=== PATIENT | female | born 1980 | race Caucasian/White ===

== ENCOUNTER 2017-04-29 10:48 | Emergency (ER) | payer MEDICARE, MEDICAID ==
[~2017-04-29] VITALS: Wt 54.5 kg
[~2017-04-29 10:48] MED LIST: AZAT50TA31 PO; CLON0.5T4 PO; DUR100 TD; GLUC1KIT3 IJ; HAL2 PO; HYDR200T39 PO; INSU100I28 SC; LANT3I SC; LIPA1CAP45 PO; LYRI25 PO; METO10TA92 PO; MILN50TA PO; MORP10SO4 GTB; OLAN10TA7 PO; OMEP40CA6 PO; OXYC-284 PO; SERT25TA PO; TIZA2TAB PO; TRAZ50TA18 PO
[2017-04-29] MEDS ORDERED: SOD CHLORIDE 0.9% 1,000 ML IV STA (11:11)
[2017-04-29 11:41] LABS: ADD SCAN DIFF NO
[2017-04-29 11:53] LABS: BASOPHIL # 0.1 10^3/ul (0.0-0.1); BASOPHILS % 0.4 % (0.0-2.0); EOSINOPHILS % 0.2 % (0.0-7.0); HEMATOCRIT 39.6 % (37.0-47.0); HEMOGLOBIN 14.3 g/dl (12.0-16.0); LYMPHOCYTES # 1.6 10^3/ul (0.8-2.9); LYMPHOCYTES % 12.5 % (15.0-51.0); MEAN CORPUSCULAR HEMOGLOBIN 34.8 pg (29.0-33.0); MEAN CORPUSCULAR HGB CONC 36.1 g/dl (32.0-37.0); MEAN CORPUSCULAR VOLUME 96.4 fl (82.0-101.0); MEAN PLATELET VOLUME 12.5 fl (7.4-10.4); MONOCYTE # 0.9 10^3/ul (0.3-0.9); MONOCYTES % 7.4 % (0.0-11.0); NEUTROPHIL # 9.9 10^3/ul (1.6-7.5); NEUTROPHILS % 78.6 % (39.0-77.0); PLATELET COUNT 339 10^3/UL (140-415); RED BLOOD COUNT 4.11 10^6/ul (4.20-5.40); RED CELL DISTRIBUTION WIDTH 13.8 % (11.5-14.5); WHITE BLOOD COUNT 12.5 10^3/ul (4.8-10.8)
[2017-04-29 12:04] LABS: ALANINE AMINOTRANSFERASE 39 IU/L (13-69); ALBUMIN 5.7 g/dl (3.3-4.9); ALKALINE PHOSPHATASE 167 IU/L (42-121); ANION GAP 18 (8-16); ASPARTATE AMINO TRANSFERASE 111 IU/L (15-46); BILIRUBIN,INDIRECT 0.6 mg/dl (0-1.1); BILIRUBIN,TOTAL 0.6 mg/dl (0.2-1.3); BLOOD UREA NITROGEN 19 mg/dl (7-20); CALCIUM 8.9 mg/dl (8.4-10.2); CARBON DIOXIDE 22 mmol/L (21-31); CHLORIDE 88 mmol/L (97-110); CREATININE 1.35 mg/dl (0.44-1.00); TOTAL PROTEIN 9.5 g/dl (6.1-8.1)
[2017-04-29 12:06] LABS: ADD UMIC NO; UR ASCORBIC ACID NEGATIVE (NEGATIVE); UR BILIRUBIN (Dip) NEGATIVE (NEGATIVE); UR BLOOD (Dip) NEGATIVE (NEGATIVE); UR CLARITY CLEAR (CLEAR); UR COLOR YELLOW (YELLOW); UR GLUCOSE (Dip) 3+ mg/dL (NEGATIVE); UR KETONES (Dip) NEGATIVE (NEGATIVE); UR LEUKOCYTE ESTERASE (Dip) NEGATIVE Leu/ul (NEGATIVE); UR NITRITE (Dip) NEGATIVE (NEGATIVE); UR TOTAL PROTEIN (Dip) NEGATIVE (NEGATIVE); UR UROBILINOGEN (Dip) NEGATIVE (NEGATIVE)
[2017-04-29 12:12] LABS: SODIUM 119 mmol/L (135-144)
[2017-04-29 12:13] LABS: ACETAMINOPHEN < 10.0 ug/ml (10.0-30.0); ETHANOL < 10.0 mg/dl; GLUCOSE 430 mg/dl (70-220); SALICYLATE < 1.0 mg/dl (5.0-30.0)
[2017-04-29 12:18] LABS: BENZODIAZEPINES Negative (NEGATIVE)
[2017-04-29 12:22] LABS: POTASSIUM 8.6 mmol/L (3.5-5.1)
[2017-04-29 12:34] LABS: BARBITURATES Negative (NEGATIVE); CANNABINOIDS Negative (NEGATIVE); COCAINE Negative (NEGATIVE); OPIATES Negative (NEGATIVE)
--- NOTE | 2017-04-29 12:45 | RADRPT ---
PROCEDURE: CT Cervical Spine without contrast. CLINICAL INDICATION: Altered level of consciousness. TECHNIQUE: A CT of the cervical spine was performed on a CT scanner utilizing thin section axial images from the skull base through the thoracic inlet. Sagittal and coronal reformatted images were made. The CTDIvol is 22.4 mGy and the DLP is 647.89 mGycm. Automated exposure control, adjustment of the mA and/or kV according to patient size, use of iterative reconstruction technique. COMPARISON: No prior studies are available for comparison. FINDINGS: Straightening of the cervical spine with reversal of the normal cervical lordosis at C4-C5. No vert ebral body subluxation is seen. No fracture is evident. C2-3: The disc is normal in height. No significant disk bulge or protrusion is evident. There is no central canal stenosis or foraminal narrowing. C3-4: The disc is normal in height. No significant disk bulge or protrusion is evident. There is no central canal stenosis or foraminal narrowing. C4-5: The disc is normal in height. No significant disk bulge or protrusion is evident. There is no central canal stenosis or foraminal narrowing. C5-6: The disc is normal in height. No significant disk bulge or protrusion is evident. There is no central canal stenosis or foraminal narrowing. C6-7: The disc is normal in height. Right central disk bulge/protrusion measuring 3 mm in AP dimen kathya. This is suboptimally evaluated due to streak artifact. There is no central canal stenosis o r foraminal narrowing. C7-T1: The disc is normal in height. small central disk bulge/protrusion . This is suboptimally radha luated due to streak artifact. There is no central canal stenosis or foraminal narrowing. No paraspinal soft tissue abnormality. The lung apices are clear right medial apical calcified gran ulomas. IMPRESSION: 1. No fracture or subluxation. No paraspinal soft tissue abnormality. 2. Small right central/central disk bulge/protrusion at C6-C7 and C7-T1 without central canal or fo raminal stenosis. These are suboptimally evaluated due to streak artifact . RPTAT:AAJJ J Port, Physician Date Time Electronically viewed and signed by Alan Garcia Physician on 04/29/2017 12:44 ISACC/
--- NOTE | 2017-04-29 13:11 | RADRPT ---
PROCEDURE: CT Brain without contrast. CLINICAL INDICATION: Patient in need of medical clearance. TECHNIQUE: A CT of the brain was performed on a [employer] CT scanner utilizi ng a low dose technique with axial imaging from the skull base through the vertex without IV contras t. Multiplanar reformatted images were made. Images were reviewed on a PACS workstation. The CTDI vol is 41.4 mGy and the DLP is 720 mGycm. One or more of the following dose reduction techniques were used: - Automated exposure control. - Adjustment of the mA and/or kV according to patient size. Use of iterative reconstruction technique. COMPARISON: None FINDINGS: The fourth ventricle is mildly dilated. The third and lateral ventricles are dilated with proportio nal sulcal dilatation noted. The cerebellar folia are prominent. No intracranial mass or hemorrhage is identified. The visible portions of the globes and extraocular muscles are normal. The paranasal sinuses are cl ear. The mastoid air cells and internal auditory canals are normal. The bony calvarium is intact. IMPRESSION: 1. Mild cerebral and cerebellar atrophy. 2. Otherwise, negative CT scan of the brain without contrast. RPTAT:AAJJ Physician Vaishali Date Time Electronically viewed and signed by Physician Vaishali on 04/29/2017 13:10 NOEMÍ/
[2017-04-29 13:18] LABS: CALCIUM 9.6 mg/dl (8.4-10.2); CREATININE 1.38 mg/dl (0.44-1.00); POTASSIUM 3.5 mmol/L (3.5-5.1)
[2017-04-29] MEDS ORDERED: INSULIN LISPRO 100 UNIT/ML VIAL SC STA (13:25)
--- NOTE | 2017-04-29 13:38 | ERD ---
ER Documentation Chief Complaint Date/Time DATE: 04/29/17 TIME: 13:36 Chief Complaint aloc per ems bs 233 in field HPI Patient is a 37-year-old female with diabetes who presents altered. Please note the history and physical exam is limited secondary to the patient's mental status. The patient was found altered outside of her apartment. Her sugar was 335 by paramedics. The paramedics think she is possibly intoxicated as she does take muscle relaxants chronically. Upon review of old medical records the patient has multiple visits to the ER for various complaints. Review of the emergency department information exchange shows visits to 3 separate emergency departments. She does not know the name of her primary doctor. ROS All systems reviewed and are negative except as per history of present illness. Medications Home Meds Reported Medications Azathioprine* (Imuran*) 50 Mg Tab, 50 MG PO DAILY, TAB 07/26/14 Trazodone Hcl* (Trazodone Hcl*) 50 Mg Tablet, 100 MG PO HS, TAB 07/26/14 Clonazepam* (Clonazepam*) 0.5 Mg Tablet, 0.5 MG PO BID, TAB 07/26/14 Insulin Detemir* (Levemir*) 100 U/Ml Insuln.pen, 16 UNIT SC QPM, EA 07/26/14 Insulin Detemir* (Levemir*) 100 U/Ml Insuln.pen, 14 UNIT SC QAM, EA 07/26/14 Morphine Sulfate* (Morphine* Liq) 10 Mg/5 Ml Solution, 0.5 ML GTB Q6, ML 07/26/14 Micvlh-Kgszphte-Puzgekn* (Rupali SO* 36,000) 36,000 L-114,000-180,000 Unit Capsule.dr, 2 CAP PO Q6, CAP 07/26/14 Oxycodone Hcl-Acetaminophen* (Percocet*) 10-325 Mg Tablet, 1 TAB PO Q4H Y for PAIN, TAB 07/26/14 Tizanidine Hcl* (Tizanidine Hcl*) 2 Mg Tablet, 2 MG PO Q4 Y for PAIN, TAB 07/26/14 Glucagon,Human Recombinant (Glucagon Emergency Kit) 1 Mg/Kit Kit, 1 MG IJ NEEDED, KIT 07/26/14 Fentanyl Patch* (Duragesic Patch*) 100 Mcg/Hr Transdermal Patch, 1 PATCH TD Q72H , PATCH 07/26/14 Haloperidol* (Haldol*) 2 Mg Tab, 2 MG PO TID, TAB 07/26/14 Insulin Glargine* (Lantus*) 100 Unit/Ml Soln, 3 UNIT SC HS, EA 07/26/14 Sertraline Hcl* (Zoloft*) 25 Mg Tablet, 25 MG PO DAILY, TAB 07/26/14 Pregabalin* (Lyrica*) 25 Mg Capsule, 50 MG PO QPM, CAP 07/26/14 Pregabalin* (Lyrica*) 25 Mg Capsule, 25 MG PO QAM, CAP 07/26/14 Olanzapine* (Zyprexa*) 10 Mg Tablet, 10 MG PO DAILY, TAB 07/26/14 Omeprazole* (Omeprazole*) 40 Mg Capsule.dr, 40 MG PO DAILY, CAP 07/26/14 Milnacipran Hcl (Savella) 50 Mg Tablet, 50 MG PO BID, TAB 07/26/14 Hydroxychloroquine Sulfate* (Hydroxychloroquine Sulfate*) 200 Mg Tablet, 200 MG PO BID 08/23/12 Metoclopramide* (Reglan*) 10 Mg Tablet, 10 MG PO TID W/FOOD 02/24/11 Allergies Allergies: Coded Allergies: Penicillins (Verified Allergy, Mild, 07/26/14) latex (Verified Allergy, Mild, 07/26/14) Cephalexin Monohydrate (Verified Allergy, Unknown, 07/26/14) Erythromycin Base (Verified Allergy, Unknown, anaphylactic rxn, 07/26/14) Sulfa (Sulfonamide Antibiotics) (Verified Allergy, Unknown, 07/26/14) amoxicillin trihydrate (Verified Allergy, Unknown, anaphylactic rxn, ) azithromycin (Verified Allergy, Unknown, 07/26/14) ciprofloxacin (Verified Allergy, Unknown, anaphylactic rxn, 07/26/14) dextromethorphan (Verified Allergy, Unknown, 07/26/14) guaifenesin (Verified Allergy, Unknown, 07/26/14) iodine (Verified Allergy, Unknown, 07/26/14) potassium clavulanate (Verified Allergy, Unknown, anaphylactic rxn, ) Uncoded Allergies: nuts (Allergy, Unknown, 07/26/14) PMhx/Soc History of Surgery: Yes (S/P PANCREATECTOMY) Hx Neurological Disorder: No (CERVICAL DYSPLAGIA, CVA) Hx Miscellaneous Medical Probl: Yes ( CHRONIC PAIN SYNDROME) FmHx Family History: diabetes Physical Exam Vitals Vital Signs Date Time Temp Pulse Resp B/P Pulse Ox O2 Delivery O2 Flow Rate FiO2 04/29/17 13:04 90 11 112/85 100 Nasal Cannula 2.0 04/29/17 10:55 97.0 101 13 122/73 97 Physical Exam Const: Altered and confused Head: Atraumatic Eyes: Normal Conjunctiva ENT: Normal External Ears, Nose and Mouth. Neck: C-collar in place placed by paramedics Resp: Clear to auscultation bilaterally Cardio: Regular rate and rhythm, no murmurs Abd: Soft, non tender, non distended. Normal bowel sounds Skin: No petechiae or rashes Back: No midline or flank tenderness Ext: No cyanosis, or edema Neur: Awake but altered and has limited answers to questions Result Diagram: 04/29/17 1122 04/29/17 1244 Results 24 hrs Laboratory Tests Test 04/29/17 11:22 04/29/17 11:33 04/29/17 11:37 04/29/17 12:44 White Blood Count 12.510^3/ul Red Blood Count 4.1110^6/ul Hemoglobin 14.3g/dl Hematocrit 39.6% Mean Corpuscular Volume 96.4fl Mean Corpuscular Hemoglobin 34.8pg Mean Corpuscular Hemoglobin Concent 36.1g/dl Red Cell Distribution Width 13.8% Platelet Count 97465^3/UL Mean Platelet Volume 12.5fl Neutrophils % 78.6% Lymphocytes % 12.5% Monocytes % 7.4% Eosinophils % 0.2% Basophils % 0.4% Nucleated Red Blood Cells % 0.0/100WBC Neutrophils # 9.910^3/ul Lymphocytes # 1.610^3/ul Monocytes # 0.910^3/ul Eosinophils # 0.010^3/ul Basophils # 0.110^3/ul Nucleated Red Blood Cells # 0.010^3/ul Sodium Level 119mmol/L 125mmol/L Potassium Level 8.6mmol/L 3.5mmol/L Chloride Level 88mmol/L 91mmol/L Carbon Dioxide Level 22mmol/L 24mmol/L Anion Gap 18 14 Blood Urea Nitrogen 19mg/dl 19mg/dl Creatinine 1.35mg/dl 1.38mg/dl Glucose Level 430mg/dl 410mg/dl Calcium Level 8.9mg/dl 9.6mg/dl Total Bilirubin 0.6mg/dl Direct Bilirubin 0.00mg/dl Indirect Bilirubin 0.6mg/dl Aspartate Amino Transf (AST/SGOT) 111IU/L Alanine Aminotransferase (ALT/SGPT) 39IU/L Alkaline Phosphatase 167IU/L Total Protein 9.5g/dl Albumin 5.7g/dl Globulin 3.80g/dl Albumin/Globulin Ratio 1.50 Salicylates Level < 1.0mg/dl Acetaminophen Level < 10.0ug/ml Ethyl Alcohol Level < 10.0mg/dl Urine Color YELLOW Urine Clarity CLEAR Urine pH 6.0 Urine Specific Brule 1.010 Urine Ketones NEGATIVEmg/dL Urine Nitrite NEGATIVEmg/dL Urine Bilirubin NEGATIVEmg/dL Urine Urobilinogen NEGATIVEmg/dL Urine Leukocyte Esterase NEGATIVELeu/ul Urine Hemoglobin NEGATIVEmg/dL Urine Glucose 3+mg/dL Urine Total Protein NEGATIVEmg/dl Urine Opiates Screen Negative Urine Barbiturates Negative Urine Amphetamines Screen Negative Urine Benzodiazepines Screen Negative Urine Cocaine Screen Negative Urine Cannabinoids Negative Bedside Glucose 422mg/dL Current Medications Medications (Trade) Dose Ordered Sig/Olimpia Route PRN Reason Start Time Stop Time Status Last Admin Dose Admin Sodium Chloride (NS) 1,000 ml @ 1,000 mls/hr Q1H STAT IV 04/29/17 11:11 04/29/17 12:10 DC 04/29/17 11:11 Insulin Human Lispro (Humalog) 10 unit ONCE STAT SC 04/29/17 13:25 04/29/17 13:26 DC Procedures/MDM CT brain negative for intracranial hemorrhage per radiology. CT cervical spine negative for fracture or dislocation per radiology. Smoking Cessation Therapy: Pt. was lectured for greater than 3 minutes on the health risks of continued smoking and the benefits of cessation. Patient is a 37-year-old female who presents altered. She was found to have elevated sugar of 400 but no signs of diabetic ketoacidosis. Aspirin, Tylenol, and alcohol levels were negative. Urine drug screen was negative. I do believe there may be an overdose of muscle relaxants given the patient's presentation. The patient will be allowed to sober in the emergency department and when she is clinically able to ambulate and care for herself she will be discharged. At this point I do not believe she requires admission to the hospital. The patient has no sign of intracranial hemorrhage or mass. There is no sign of cervical spine fracture in the c-collar was removed. She is protecting her own airway. Critical Care: Time: 35 minutes excluding all billable procedures. Treatments/Evaluations: Close monitoring and treatment of unstable vital signs, cardiorespiratory, and neurologic status, while maintaining tight balance of fluid, respiratory, and cardiac interventions. Departure Diagnosis: Primary Impression: Hyperglycemia Additional Impression: Altered level of consciousness Condition: Fair Patient Instructions: Hyperglycemia (High Blood Sugar), Altered Loc Additional Instructions: Call your primary care doctor TOMORROW for an appointment during the next 1-2 days.See the doctor sooner or return here if your condition worsens before your appointment time. JAYNA MENDEZ MD Apr 29, 2017 13:38
[2017-04-29 17:18] VITALS: BP 123/88; PULSE 104; RESP 20; TEMP 98.8
== END 2017-04-29 17:52 | disposition home or self-care (01) ==
LOC: E/R 10:48
DX: E11.65 Type 2 diabetes mellitus with hyperglycemia (principal)
CPT/HCPCS: 36415; 70450; 72125; 80048; 80053; 80306; 80307; 81003; 82962; 85025; 93005; 96372; 99291; J1815; J7030